=== PATIENT | male | born 1980 | race African-American/Black ===

== ENCOUNTER 2017-05-20 23:35 | Emergency (ER) | payer MEDICAID ==
[~2017-05-20] VITALS: Ht 180.3 cm; Wt 84.0 kg
[~2017-05-20 23:35] MED LIST: OLAN20TA16 PO; PARO-41 PO
[2017-05-21] MEDS ORDERED: ALBUTEROL (0.083%) 2.5MG/3ML NEB HHN STA (00:33)
[2017-05-21] MEDS ORDERED: PREDNISONE 20MG TABLET PO STA (00:33)
[2017-05-21] MEDS ORDERED: IPRATROPIUM BROMIDE (0.02%) 0.5MG/2.5ML NEB HHN STA (00:33)
[2017-05-21 01:05] VITALS: BP 139/85
== END 2017-05-21 01:05 | disposition home or self-care (01) ==
LOC: ER 05-21 00:22
DX: J45.901 Unspecified asthma with (acute) exacerbation (principal)
CPT/HCPCS: 94640; 99283; J7611; J7512

== ENCOUNTER 2021-11-11 23:25 | Emergency (ER) | payer MEDICAID ==
[~2021-11-11] VITALS: Ht 177.8 cm; Wt 87.9 kg
[~2021-11-11 23:25] MED LIST changes: -OLAN20TA16 PO; +OLAN20TA34 PO
[2021-11-11] MEDS ORDERED: ALBUTEROL (0.083%) 2.5MG/3ML NEB HHN STA (23:44)
[2021-11-11] MEDS ORDERED: IPRATROPIUM BROMIDE (0.02%) 0.5MG/2.5ML NEB HHN STA (23:44)
[2021-11-12] MEDS: PREDNISONE 20MG TABLET PO STA ×2 (00:17→00:20)
[2021-11-12] MEDS ORDERED: ACETAMINOPHEN 325MG TABLET PO ONE (00:30)
[2021-11-12] MEDS ORDERED: ALBU6.7H9 INH (00:35)
[2021-11-12] MEDS ORDERED: P50 MT (00:35)
[2021-11-12] MEDS ORDERED: PREDNISONE 20MG TABLET PO NR (01:45)
[2021-11-12] MEDS ORDERED: ACETAMINOPHEN 325MG TABLET PO NR (01:45)
[2021-11-12 01:50] VITALS: BP 142/92
== END 2021-11-12 02:00 | disposition home or self-care (01) ==
LOC: ER 23:25
DX: J45.901 Unspecified asthma with (acute) exacerbation (principal); R51.9 Headache, unspecified
CPT/HCPCS: 71045; 94640; 99285; Z7610; J7512

== ENCOUNTER 2021-12-21 21:55 | Emergency (ER) | payer MEDICAID ==
[~2021-12-21] VITALS: Ht 180.3 cm; Wt 81.4 kg
[~2021-12-21 21:55] MED LIST changes: +ALBU6.7H9 INH; +P50 MT
[2021-12-21 22:11] VITALS: BP 133/92
== END 2021-12-22 05:10 | disposition left against medical advice (07) ==
LOC: ER 21:55
DX: Z53.21 Procedure and treatment not carried out due to patient leaving prior to being seen by health care provider (principal); J02.9 Acute pharyngitis, unspecified; J45.901 Unspecified asthma with (acute) exacerbation; R94.31 Abnormal electrocardiogram [ECG] [EKG]
CPT/HCPCS: 93005; 99283

== ENCOUNTER 2022-06-05 00:15 | Emergency (ER) | payer MEDICAID ==
[~2022-06-05] VITALS: Ht 177.8 cm; Wt 81.1 kg
[~2022-06-05 00:15] MED LIST changes: +ALBU6.7H3 INH; -ALBU6.7H9 INH; +AMOX-494 MT; +IBUP-2028 MT
[2022-06-05 00:20] VITALS: BP 126/81
[2022-06-06] MEDS ORDERED: ALBU6.7H3 INH (06:41)
== END 2022-06-05 05:00 | disposition left against medical advice (07) ==
LOC: ER 00:30
DX: Z53.21 Procedure and treatment not carried out due to patient leaving prior to being seen by health care provider (principal)

== ENCOUNTER 2022-06-06 00:35 | Emergency (ER) | payer MEDICAID ==
[~2022-06-06] VITALS: Ht 180.3 cm; Wt 70.0 kg
[2022-06-06] MEDS ORDERED: ALBUTEROL (0.5%) 2.5MG/0.5ML NEB HHN ONE (06:30)
[2022-06-06 06:40] VITALS: BP 124/87
[2022-06-06] MEDS ORDERED: ALBU6.7H3 INH (06:41)
== END 2022-06-06 08:15 | disposition home or self-care (01) ==
LOC: ER 00:35
DX: J45.901 Unspecified asthma with (acute) exacerbation (principal)
CPT/HCPCS: 94640; 99283; Z7610

== ENCOUNTER 2022-08-01 01:58 | Emergency (ER) | payer MEDICAID ==
[~2022-08-01] VITALS: Ht 177.8 cm; Wt 91.6 kg
[2022-08-01 03:01] VITALS: BP 130/89
== END 2022-08-01 06:44 | disposition left against medical advice (07) ==
LOC: ER 01:58
DX: Z76.0 Encounter for issue of repeat prescription (principal)

== ENCOUNTER 2023-11-23 23:19 | Emergency (ER) | payer MEDICAID ==
[~2023-11-23] VITALS: Ht 177.8 cm; Wt 75.0 kg
[2023-11-23 23:26] VITALS: TEMP 98.3; O2SAT 99
[2023-11-24 03:07] VITALS: BP 122/81; PULSE 66; RESP 16
[2023-11-24] MEDS: IBUPROFEN 600MG TABLET PO ONE (03:07)
[2023-11-24] MEDS: GUAIFENESIN 600MG ER TABLET PO ONE (03:07)
[2023-11-24] MEDS ORDERED: MED4 MT (03:58)
[2023-11-24] MEDS ORDERED: GUAI600T26 MT (03:59)
[2023-11-24] MEDS ORDERED: ACET-2708 MT (03:59)
== END 2023-11-24 04:48 | disposition home or self-care (01) ==
LOC: ER 23:19
DX: B34.9 Viral infection, unspecified (principal); J45.909 Unspecified asthma, uncomplicated; Z00.00 Encounter for general adult medical examination without abnormal findings; Z20.822 Contact with and (suspected) exposure to COVID-19
CPT/HCPCS: 87426; 87804; 99283

== ENCOUNTER 2023-12-03 23:22 | Emergency (ER) | payer MEDICAID ==
[~2023-12-03] VITALS: Ht 177.8 cm; Wt 77.0 kg
[~2023-12-03 23:22] MED LIST changes: +ACET-2708 MT; +GUAI600T26 MT; +MED4 MT
[2023-12-03 23:42] VITALS: O2SAT 97
[2023-12-04] MEDS ORDERED: IBUP-2030 MT (01:54)
[2023-12-04] MEDS: HYDROCODONE/ACETAMINOPHEN 10/325MG TABLET PO ONE (02:21)
[2023-12-04 02:22] VITALS: BP 128/94; PULSE 62; RESP 16; TEMP 98.9
[2023-12-04] MEDS ORDERED: HYDROCODONE/ACETAMINOPHEN 10/325MG TABLET PO NR (02:30)
== END 2023-12-04 02:26 | disposition home or self-care (01) ==
LOC: ER 23:22
DX: S93.401A Sprain of unspecified ligament of right ankle, initial encounter (principal); J45.909 Unspecified asthma, uncomplicated; Z79.899 Other long term (current) drug therapy; X58.XXXA Exposure to other specified factors, initial encounter; Y93.89 Activity, other specified; Y92.89 Other specified places as the place of occurrence of the external cause; Y99.8 Other external cause status
CPT/HCPCS: 73610; 99283

== ENCOUNTER 2024-02-03 23:17 | Emergency (ER) | payer MEDICAID ==
[~2024-02-03] VITALS: Ht 177.8 cm; Wt 86.0 kg
[~2024-02-03 23:17] MED LIST changes: +IBUP-2030 MT
[2024-02-03 23:24] VITALS: BP 122/93; RESP 15; TEMP 98; O2SAT 97
[2024-02-03 23:25] VITALS: PULSE 76
[2024-02-04] MEDS ORDERED: ALBUTEROL (0.083%) 2.5MG/3ML NEB HHN STA (00:16)
[2024-02-04] MEDS ORDERED: AZIT250T12 MT (01:41)
[2024-02-04] MEDS ORDERED: ALBU6.7H15 INH (01:41)
[2024-02-04] MEDS ORDERED: DEXT15LI5 MT (01:41)
== END 2024-02-04 03:10 | disposition left against medical advice (07) ==
LOC: ER 23:17
DX: R05.9 Cough, unspecified (principal); R53.83 Other fatigue; J45.909 Unspecified asthma, uncomplicated; Z79.899 Other long term (current) drug therapy
CPT/HCPCS: 71045; 93005; 99283

== ENCOUNTER 2024-03-08 00:32 | Emergency (ER) | payer MEDICAID ==
[~2024-03-08] VITALS: Ht 177.8 cm; Wt 82.0 kg
[~2024-03-08 00:32] MED LIST changes: +ALBU6.7H15 INH; +AZIT250T12 MT; +DEXT15LI5 MT; -MED4 MT; +METH4TAB95 MT; -OLAN20TA34 PO; +OLAN20TA79 PO
[2024-03-08 00:44] VITALS: O2SAT 97
[2024-03-08] MEDS ORDERED: ACETAMINOPHEN 325MG TABLET PO ONE (01:30)
[2024-03-08] MEDS: ACETAMINOPHEN 325MG TABLET PO NR (02:42)
[2024-03-08] MEDS ORDERED: ALBU6.7H15 INH (03:23)
[2024-03-08] MEDS ORDERED: LORA-985 MT (03:23)
[2024-03-08 03:48] VITALS: BP 154/94; PULSE 91; RESP 20; TEMP 36.55848; O2SAT 98
== END 2024-03-08 03:50 | disposition home or self-care (01) ==
LOC: ER 00:32
DX: B34.9 Viral infection, unspecified (principal); J45.909 Unspecified asthma, uncomplicated; Z20.822 Contact with and (suspected) exposure to COVID-19; Z79.899 Other long term (current) drug therapy
CPT/HCPCS: 71045; 87426; 99284

== ENCOUNTER 2025-03-07 18:20 | Emergency (ER) | payer MEDICAID, OTHER ==
[~2025-03-07] VITALS: Ht 177.8 cm; Wt 77.0 kg
[~2025-03-07 18:20] MED LIST changes: +LORA-985 MT
[2025-03-07 18:23] VITALS: TEMP 36.8; O2SAT 100
[2025-03-07 18:30] VITALS: BP 144/98; PULSE 64; RESP 18
[2025-03-07] MEDS: KETOROLAC 30MG/ML VIAL IM ONE (18:30)
== END 2025-03-07 19:36 ==
LOC: ER 18:20
DX: M54.9 Dorsalgia, unspecified (principal); I10 Essential (primary) hypertension; J45.909 Unspecified asthma, uncomplicated; Z79.899 Other long term (current) drug therapy
CPT/HCPCS: 99283